=== PATIENT | male | born 1965 | race Caucasian/White ===

== ENCOUNTER 2018-08-29 14:24 | Emergency (ER) | payer OTHER ==
[2018-08-29 14:48] VITALS: O2SAT 99
[2018-08-29] MEDS ORDERED: PROMETHAZINE HCL INJ 25 MG/ML VIAL ONE (15:14)
[2018-08-29] MEDS ORDERED: SODIUM CHLORIDE 0.9% 50ML 50 ML ONE (15:14)
[2018-08-29] MEDS: SODIUM CHLORIDE 0.9% 1000ML 1,000 ML IVS ONE (15:19)
[2018-08-29] MEDS: KETOROLAC TROMETHAMINE INJ 30 MG/ML VIAL IV ONE (15:20)
[2018-08-29] MEDS: PROMETHAZINE HCL INJ 25 MG in SODIUM CHLORIDE 0.9% 50ML 50 ML IVPB ONE (15:20)
[2018-08-29] MEDS: SODIUM CHLORIDE 0.9% (FLUSH) 10 ML SYG IV PRN (15:21)
--- NOTE | 2018-08-29 15:23 | ED.PDOC ---
History of Present Illness - General Chief Complaint: Headache Stated Complaint: Headache Time Seen by Provider: 08/29/18 14:54 Source: patient, family Exam Limitations: no limitations Additional Information: PT PRESENTS WITH COMPLAINT OF HEADACHE FOR THE PAST 1.5 MONTHS. PT REPORTS A HISTORY OF MIGRAINES AND REPORTS HE IS OUT OF IMITREX. - History of Present Illness Timing/Duration: waxing and waning Quality: moderate Head Injury Location: global Recent Head Trauma: chronic headaches Improving Factors: nothing Worsening Factors: nothing Associated Symptoms: denies symptoms Allergies/Adverse Reactions: Allergies NO KNOWN ALLERGY Allergy (Unverified 03/29/13 23:14) Home Medications: Ambulatory Orders Yohsfdrainxaj-Hpgf-Iblfpkjpbs [Fioricet] 1 - 2 ea PO Q6HR PRN #20 tab 08/29/18 Albuterol Sulfate [Proair Hfa] 2 puff INH Q6H PRN 08/29/18 Ibuprofen 800 mg PO Q8HR PRN #30 tab 08/29/18 Promethazine Tab [Phenergan Tablet] 25 mg PO Q6H PRN #15 tab 08/29/18 Tiotropium [place] Monohydrate [Spiriva Handihaler] 1 puff IN DAILY 08/29/18 Review of Systems - Review of Systems Constitutional: Denies: chills, fever EENTM: States: nose congestion. Denies: throat pain Respiratory: Denies: cough, short of breath Cardiology: Denies: chest pain, palpitations Gastrointestinal/Abdominal: Denies: abdominal pain, nausea, vomiting Genitourinary: Denies: dysuria, frequency Musculoskeletal: Denies: joint pain, joint swelling Skin: Denies: dryness, lesions Neurological: States: headache. Denies: numbness, paresthesia Endocrine: States: no symptoms reported Hematologic/Lymphatic: States: no symptoms reported Past Medical History (General) - Patient Medical History Hx Stroke: No Hx of COPD: Yes Hx Congestive Heart Failure: No Hx Diabetes: No Hx Hepatitis C: Yes Hx MRSA: No Surgical History: appendectomy - Vaccination History Hx Influenza Vaccination: No Hx Pneumococcal Vaccination: No - Social History Hx Tobacco Use: Yes Hx Alcohol Use: No Hx Substance Use: Yes - Female History Patient : No Family Medical History - Family History Brother Hx Cardiac Disease: Yes Physical Exam - Physical Exam General Appearance: Alert, Obvious distress, Well Groomed, Well Hydrated Eyes, Ears, Nose, Throat Exam: PERRL/EOMI Neck: non-tender, supple Cardiovascular/Chest: regular rate, rhythm, no murmur Respiratory: normal breath sounds, no respiratory distress Back Exam: normal inspection, no CVA tenderness Extremity: normal inspection 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 LABS AND CT FINDINGS DISCUSSED. - Results/Orders Results/Orders: Laboratory Tests 08/29/18 08/29/18 15:10 15:10 WBC 9.9 RBC 4.85 Hgb 15.1 Hct 44.6 MCV 91.9 MCH 31.0 MCHC 33.8 RDW 14.3 Plt Count 218 MPV 8.5 Absolute Neuts (auto) 7.10 H Absolute Lymphs (auto) 2.00 Absolute Monos (auto) 0.60 Absolute Eos (auto) 0.20 Absolute Basos (auto) 0.00 Neutrophils % 72.2 Lymphocytes % 20.2 Monocytes % 5.7 Eosinophils % 1.5 Basophils % 0.4 Sodium 141 Potassium 4.0 Chloride 105 Carbon Dioxide 26 Anion Gap 14.0 BUN 10 Creatinine 0.76 BUN/Creatinine Ratio 13.2 Random Glucose 84 Serum Osmolality 279.5 Calcium 9.6 Total Bilirubin 0.4 Direct Bilirubin < 0.1 Indirect Bilirubin 0.3 AST 19 ALT 18 Alkaline Phosphatase 77 Serum Total Protein 7.7 Albumin 4.5 Departure - Departure Clinical Impression: Migraine, Chronic sinusitis Time of Disposition: 16:11 Disposition: Discharge to Home or Self Care Condition: Good Departure Forms: ED Discharge - Pt. Copy, Patient Portal Self Enrollment Instructions: DI for Headache Referrals: Sara Shetty MD [Primary Care Provider] - 1-2 Weeks Prescriptions: Xrxzgyxroifvg-Tqbn-Mloiraclli [Fioricet] 1 - 2 ea PO Q6HR PRN #20 tab PRN Reason: Headache/Migraine Pain Ibuprofen 800 mg PO Q8HR PRN #30 tab PRN Reason: Pain Promethazine Tab [Phenergan Tablet] 25 mg PO Q6H PRN #15 tab PRN Reason: Nausea/Vomiting Home Medications: Ambulatory Orders Jrixszsyrvpxj-Hqtw-Hzxnvxqyqb [Fioricet] 1 - 2 ea PO Q6HR PRN #20 tab 08/29/18 Albuterol Sulfate [Proair Hfa] 2 puff INH Q6H PRN 08/29/18 Ibuprofen 800 mg PO Q8HR PRN #30 tab 08/29/18 Promethazine Tab [Phenergan Tablet] 25 mg PO Q6H PRN #15 tab 08/29/18 Tiotropium [place] Monohydrate [Spiriva Handihaler] 1 puff IN DAILY 08/29/18
--- NOTE | 2018-08-29 15:27 | CT ---
EXAM DESCRIPTION: Head CLINICAL HISTORY: headache x 1month COMPARISON: Previous study March 29, 2013 TECHNIQUE: Noncontrast head CT was performed with routine protocol. FINDINGS: Normal mart-white matter differentiation. Ventricles and sulci are normal for age. No high density hemorrhage, focal edema or shift of the midline. No sulcal effacement. Normal orbital contents. Basilar cisterns appear clear. Intact calvarium with no fracture or lytic lesion. Normal aeration of tympanic cavities and mastoid air cells. Fluid in the left maxillary sinus is partially visualized. Left maxillary sinus appears thick-walled and hypoplastic.. Skull base appears intact. Symmetrical internal auditory canals. IMPRESSION: Inflamed hypoplastic left maxillary sinus. Otherwise no acute intracranial pathologic process. This exam was performed according to our departmental dose-optimization program, which includes automated exposure control, adjustment of the mA and/or kV according to patient size and/or use of iterative reconstruction technique. Total DLP equals 859.97 mGycm. Electronically signed by: Hua Snyder MD 08/29/2018 3:25 PM [facility]
[2018-08-29 17:20] VITALS: BP 134/86; TEMP 98
== END 2018-08-29 16:12 | disposition home or self-care (01) ==
LOC: ER 14:24
DX: G43.909 Migraine, unspecified, not intractable, without status migrainosus (principal); J32.9 Chronic sinusitis, unspecified; J44.9 Chronic obstructive pulmonary disease, unspecified; Z86.19 Personal history of other infectious and parasitic diseases; Z87.891 Personal history of nicotine dependence; Z79.899 Other long term (current) drug therapy
CPT/HCPCS: 36415; 70450; 80048; 80076; 85025; A4216; J1885; J2550; J7030

== ENCOUNTER 2018-09-25 12:21 | Emergency (ER) | payer OTHER ==
[2018-09-25 12:36] VITALS: TEMP 96.4
[2018-09-25] MEDS ORDERED: SUMAtriptan SUCCINATE INJ 6 MG/0.5 ML VIAL SUBCU ONE (12:55)
--- NOTE | 2018-09-25 13:40 | ED.PDOC ---
History of Present Illness - General Chief Complaint: Headache Stated Complaint: headache Time Seen by Provider: 09/25/18 12:27 Source: patient Exam Limitations: no limitations - History of Present Illness Initial Comments: The patient is a 52-year-old male presenting to the emergency room secondary tomigraine headache on top of the longer term chronic headache that is likely relat sinus issues. He has had many migraines in the past and has always responded well to Imitrex. He had a head CT and blood work here less than a month ago for the same issue. He does have some mild nausea. He does have photophobia. No new neurological changes. Timing/Duration: 24 hours Severity: severe Improving Factors: nothing Worsening Factors: nothing Associated Symptoms: denies symptoms Allergies/Adverse Reactions: Allergies NO KNOWN ALLERGY Allergy (Verified 09/25/18 12:36) Home Medications: Ambulatory Orders Dmctkudaxvqdl-Xgun-Ufftzcfsbf [Fioricet] 1 - 2 ea PO Q6HR PRN #20 tab 08/29/18 Albuterol Sulfate [Proair Hfa] 2 puff INH Q6H PRN 08/29/18 Ibuprofen 800 mg PO Q8HR PRN #30 tab 08/29/18 Promethazine Tab [Phenergan Tablet] 25 mg PO Q6H PRN #15 tab 08/29/18 Tiotropium [place] Monohydrate [Spiriva Handihaler] 1 puff IN DAILY 08/29/18 Review of Systems - Review of Systems Constitutional: States: malaise EENTM: States: no symptoms reported Respiratory: States: no symptoms reported Cardiology: States: no symptoms reported Gastrointestinal/Abdominal: States: no symptoms reported Genitourinary: States: no symptoms reported Musculoskeletal: States: no symptoms reported Skin: States: no symptoms reported Neurological: States: headache Endocrine: States: no symptoms reported All other Systems: No Change from Baseline Past Medical History (General) - Patient Medical History Hx Stroke: No Hx of COPD: Yes Hx Congestive Heart Failure: No Hx Diabetes: No Hx Hepatitis C: Yes Hx MRSA: No Surgical History: appendectomy - Vaccination History Hx Influenza Vaccination: No Hx Pneumococcal Vaccination: No - Social History Hx Tobacco Use: Yes Hx Alcohol Use: No Hx Substance Use: Yes - Female History Patient : No Family Medical History - Family History Brother Hx Cardiac Disease: Yes Physical Exam - Physical Exam General Appearance: Alert, Obvious distress Eye Exam: bilateral normal Ears, Nose, Throat: hearing grossly normal, normal ENT inspection, normal pharynx - poor dentition Neck: full range of motion, supple Respiratory: lungs clear, normal breath sounds, no respiratory distress, no accessory muscle use Cardiovascular/Chest: normal peripheral pulses, regular rate, rhythm, no edema Peripheral Pulses: radial,right: 2+, radial,left: 2+, dorsalis pedis,right: 2+, dorsalis pedis,left: 2+ Gastrointestinal/Abdominal: non tender, soft Rectal Exam: deferred Back Exam: normal inspection, no CVA tenderness Extremity: non-tender, normal inspection, no pedal edema, normal capillary refill 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 He has responded very well to Imitrex here. His headaches will likely improve once he goes back to [place] and is not exposed to the same allergens. He needs to keep himself well hydrated. ER warnings were given. Keep follow-up with primary care doctor in [place]. Departure - Departure Clinical Impression: Migraine Qualifiers: Migraine type: unspecified Status migrainosus presence: without status migrainosus Intractability: not intractable Qualified Code(s): G43.909 - Migraine, unspecified, not intractable, without status migrainosus Disposition: Discharge to Home or Self Care Condition: Fair Departure Forms: ED Discharge - Pt. Copy, Patient Portal Self Enrollment Diet: regular diet Activity: increase activity as tolerated Referrals: Sara Shetty MD [Primary Care Provider] - 1-2 Weeks Home Medications: Ambulatory Orders Usmsvufhkovpx-Rtql-Tjruoidnzg [Fioricet] 1 - 2 ea PO Q6HR PRN #20 tab 08/29/18 Albuterol Sulfate [Proair Hfa] 2 puff INH Q6H PRN 08/29/18 Ibuprofen 800 mg PO Q8HR PRN #30 tab 08/29/18 Promethazine Tab [Phenergan Tablet] 25 mg PO Q6H PRN #15 tab 08/29/18 Tiotropium [place] Monohydrate [Spiriva Handihaler] 1 puff IN DAILY 08/29/18 Additional Instructions: the patient is a 52-year-old male presenting with a migraine headache on top of what is likely a chronic sinus headache and tension headache. He has responded very well to Imitrex here. His headaches will likely improve once he goes back to [place] and is not exposed to the same allergens. He needs to keep himself well hydrated. ER warnings were given. Keep follow-up with primary care doctor in [place].
[2018-09-25 14:10] VITALS: BP 138/93; O2SAT 96
== END 2018-09-25 14:11 | disposition home or self-care (01) ==
LOC: ER 12:21
DX: G43.909 Migraine, unspecified, not intractable, without status migrainosus (principal); J44.9 Chronic obstructive pulmonary disease, unspecified; Z86.19 Personal history of other infectious and parasitic diseases; Z87.891 Personal history of nicotine dependence; Z79.899 Other long term (current) drug therapy